=== PATIENT | female | born 1990 | race American Indian/Alaskan Native ===

== ENCOUNTER 2020-12-27 13:26 | Emergency (ER) | payer OTHER ==
[2020-12-27 13:36] VITALS: BP 128/85
--- NOTE | 2020-12-27 13:43 | Emergency Department Report ---
ED General Adult HPI - General Chief complaint: Fever Stated complaint: HIGH FEVER/PAIN PUI?: No Source: patient Mode of arrival: Ambulatory Limitations: No Limitations - History of Present Illness Initial comments: This is a 30-year-old female with no prior medical history presents ED complaining of intermittent fever for the past 3 days. Patient states that fever began 3 days ago which reduces with Tylenol but has not gone away. Patient also admits nausea and vomiting intermittently. Patient states that she has not been in contact with any sick persons. Patient does complain of flank pain and dysuria. Patient also notes that she is irregular menstrual cycles in the past few months. She does deny abdominal pain chest pain, vaginal dischar ge, abnormal bleeding - Related Data Previous Rx's Medication Instructions Recorded Last Taken Type Prednisone [Prednisone 10 mg 10 mg PO .TAPER #1 tab.ds.pk 02/06/14 Unknown Rx (6-Day Pack, 21 Tabs)] Ondansetron [Zofran ODT TAB] 8 mg PO Q12HR #10 tab.rapdis 12/27/20 Unknown Rx Phenazopyridine [Pyridium] 200 mg PO BID #8 tab 12/27/20 Unknown Rx Sulfamethoxazole/Trimethoprim 1 each PO BID #14 tablet 12/27/20 Unknown Rx [Bactrim DS TAB] Allergies Allergy/AdvReac Type Severity Reaction Status Date / Time No Known Allergies Allergy Verified 12/12/13 15:43 ED Review of Systems ROS: Stated complaint: HIGH FEVER/PAIN Other details as noted in HPI Comment: All other systems reviewed and negative ED Past Medical Hx - Past Medical History Previous Medical History?: No - Surgical History Past Surgical History?: No - Social History Smoking Status: Current Some Day Smoker - Medications Home Medications: Home Medications Medication Instructions Recorded Confirmed Last Taken Type Prednisone [Prednisone 10 mg 10 mg PO .TAPER #1 tab.ds.pk 02/06/14 Unknown Rx (6-Day Pack, 21 Tabs)] Ondansetron [Zofran ODT TAB] 8 mg PO Q12HR #10 tab.rapdis 12/27/20 Unknown Rx Phenazopyridine [Pyridium] 200 mg PO BID #8 tab 12/27/20 Unknown Rx Sulfamethoxazole/Trimethoprim 1 each PO BID #14 tablet 12/27/20 Unknown Rx [Bactrim DS TAB] ED Physical Exam - General Limitations: No Limitations General appearance: alert, in no apparent distress - Head Head exam: Present: atraumatic, normocephalic - Eye Eye exam: Present: normal appearance - ENT ENT exam: Present: mucous membranes moist - Neck Neck exam: Present: normal inspection - Respiratory Respiratory exam: Present: normal lung sounds bilaterally. Absent: respiratory distress - Cardiovascular Cardiovascular Exam: Present: regular rate, normal rhythm. Absent: systolic murmur, diastolic murmur, rubs, gallop - GI/Abdominal GI/Abdominal exam: Present: soft, normal bowel sounds. Absent: distended, tende rness - Extremities Exam Extremities exam: Present: normal inspection, full ROM. Absent: tenderness, normal capillary refill - Back Exam Back exam: Present: normal inspection, full ROM, CVA tenderness (R). Absent: tenderness, CVA tenderness (L) - Neurological Exam Neurological exam: Present: alert, oriented X3, CN II-XII intact, normal gait - Psychiatric Psychiatric exam: Present: normal affect, normal mood - Skin Skin exam: Present: warm, dry, intact, normal color. Absent: rash ED Course Vital Signs 12/27/20 12/27/20 12/27/20 13:30 15:58 17:40 Temperature 101.3 F H 99.7 F H Pulse Rate 110 H 94 H Respiratory 18 18 Rate Blood Pressure 128/85 O2 Sat by Pulse 98 Oximetry ED Medical Decision Making - Lab Data Result diagrams: 12/27/20 14:27 12/27/20 14:27 Laboratory Last Values WBC 8.0 K/mm3 (4.5-11.0) 12/27/20 14:27 RBC 4.16 M/mm3 (3.65-5.03) 12/27/20 14:27 Hgb 11.9 gm/dl (10.1-14.3) 12/27/20 14:27 Hct 35.9 % (30.3-42.9) 12/27/20 14:27 MCV 86 fl (79-97) 12/27/20 14:27 MCH 29 pg (28-32) 12/27/20 14:27 MCHC 33 % (30-34) 12/27/20 14:27 RDW 14.7 % (13.2-15.2) 12/27/20 14:27 Plt Count 158 K/mm3 (140-440) 12/27/20 14:27 Lymph % (Auto) 10.2 % (13.4-35.0) L 12/27/20 14:27 [place] % (Auto) 9.3 % (0.0-7.3) H 12/27/20 14:27 Eos % (Auto) 0.0 % (0.0-4.3) 12/27/20 14:27 Baso % (Auto) 0.2 % (0.0-1.8) 12/27/20 14:27 Lymph # (Auto) 0.8 K/mm3 (1.2-5.4) L 12/27/20 14:27 [place] # (Auto) 0.7 K/mm3 (0.0-0.8) 12/27/20 14:27 Eos # (Auto) 0.0 K/mm3 (0.0-0.4) 12/27/20 14:27 Baso # (Auto) 0.0 K/mm3 (0.0-0.1) 12/27/20 14:27 Seg Neutrophils % 80.3 % (40.0-70.0) H 12/27/20 14:27 Seg Neutrophils # 6.4 K/mm3 (1.8-7.7) 12/27/20 14:27 Sodium 132 mmol/L (137-145) L 12/27/20 14:27 Potassium 4.2 mmol/L (3.6-5.0) 12/27/20 14:27 Chloride 97.3 mmol/L (98-107) L 12/27/20 14:27 Carbon Dioxide 23 mmol/L (22-30) 12/27/20 14:27 Anion Gap 16 mmol/L 12/27/20 14:27 BUN 8 mg/dL (7-17) 12/27/20 14:27 Creatinine 0.7 mg/dL (0.6-1.2) 12/27/20 14:27 Estimated GFR > 60 ml/min 12/27/20 14:27 BUN/Creatinine Ratio 11 % 12/27/20 14:27 Glucose 97 mg/dL (65-100) 12/27/20 14:27 Calcium 9.3 mg/dL (8.4-10.2) 12/27/20 14:27 Lipase 19 units/L (13-60) 12/27/20 14:27 Urine Color Yellow (Yellow) 12/27/20 16:11 Urine Turbidity Cloudy (Clear) 12/27/20 16:11 Urine pH 6.0 (5.0-7.0) 12/27/20 16:11 Ur Specific [place] 1.014 (1.003-1.030) 12/27/20 16:11 Urine Protein 100 mg/dl mg/dL (Negative) 12/27/20 16:11 Urine Glucose (UA) Neg mg/dL (Negative) 12/27/20 16:11 Urine Ketones Neg mg/dL (Negative) 12/27/20 16:11 Urine Blood Mod (Negative) 12/27/20 16:11 Urine Nitrite Neg (Negative) 12/27/20 16:11 Ur Reducing Substances Not Reportable 12/27/20 16:11 Urine Bilirubin Neg (Negative) 12/27/20 16:11 Urine Ictotest Not Reportable 12/27/20 16:11 Urine Urobilinogen < 2.0 mg/dL (<2.0) 12/27/20 16:11 Ur Leukocyte Esterase Lg (Negative) 12/27/20 16:11 Urine WBC (Auto) > 182.0 /HPF (0.0-6.0) H 12/27/20 16:11 Urine RBC (Auto) 75.0 /HPF (0.0-6.0) 12/27/20 16:11 U Epithel Cells (Auto) 5.0 /HPF (0-13.0) 12/27/20 16:11 Urine Bacteria (Auto) 3+ /HPF (Negative) 12/27/20 16:11 Urine Mucus Few /HPF 12/27/20 16:11 Urine HCG, Qual Negative (Negative) 12/27/20 16:11 - Medical Decision Making 30-year-old female presents with a bacterial urinary tract infection ED course: Patient received Tylenol during ED stay Urinalysis is positive for bacteria and all other labs within normal limits. I discussed this findings with the patient. I discussed the patient to make sure he completes all of the antibiotic dose even until symptoms resolve. I discussed with the patient on Pyridium will turn her urine orangeish color but will stop once he stops taking pyridium Patient is in no acute distress, patient also has on instructions were given to her. Critical care attestation.: If time is entered above; I have spent that time in minutes in the direct care of this critically ill patient, excluding procedure time. ED Disposition Clinical Impression: UTI (urinary tract infection), Cystitis, Dysuria Disposition: TO HOME OR SELFCARE Is pt being admited?: No Does the pt Need Aspirin: No Condition: Stable Instructions: Urinary Tract Infection, Adult, Sphk-[id number]-Atds, Dysuria Additional Instructions: Make sure to follow up with the primary care physician as discussed. Take all your medications as you've been prescribed. If you have any worsening symptoms or develop new symptoms please return to ED immediately. Prescriptions: Sulfamethoxazole/Trimethoprim [Bactrim DS TAB] 1 each PO BID #14 tablet Phenazopyridine [Pyridium] 200 mg PO BID #8 tab Ondansetron [Zofran ODT TAB] 8 mg PO Q12HR #10 tab.rapdis Referrals: PRIMARY CARE, [Primary Care Provider] - 3-5 Days [facility] [Outside] - 3-5 Days [facility] [Outside] - 3-5 Days Forms: Accompanied Note, Work/School Release Form(ED) Time of Disposition: 16:54
[2020-12-27 14:54] LABS: Basophils % (Auto) 0.2 % (0.0-1.8); Hematocrit 35.9 % (30.3-42.9); Hemoglobin 11.9 gm/dl (10.1-14.3); Lymphocytes # (Auto) 0.8 K/mm3 (1.2-5.4); Lymphocytes % (Auto) 10.2 % (13.4-35.0); Mean Corpuscular HGB Conc 33 % (30-34); Mean Corpuscular Volume 86 fl (79-97); Monocytes # (Auto) 0.7 K/mm3 (0.0-0.8); Monocytes % (Auto) 9.3 % (0.0-7.3); Platelet Count 158 K/mm3 (140-440); Red Blood Count 4.16 M/mm3 (3.65-5.03); Red Cell Distribution Width 14.7 % (13.2-15.2)
[2020-12-27 15:08] LABS: Blood Urea Nitrogen 8 mg/dL (7-17); Calcium 9.3 mg/dL (8.4-10.2); Hemolysis Index 5
[2020-12-27 15:19] LABS: BUN/Creatinine Ratio 11
[2020-12-27] MEDS ORDERED: ACETAMINOPHEN 325 MG TAB PO ONE (15:27)
[2020-12-27] MEDS ORDERED: ONDANSETRON 4 MG ODT TAB ONE ×2 (15:51→15:52)
[2020-12-27] MEDS ORDERED: ONDANSETRON 4 MG ODT TAB PO ONE (15:53)
[2020-12-27 16:32] LABS: HCG Qualitative,Urine Negative (Negative)
[2020-12-27 16:49] LABS: Bacteria,Urine 3+ /HPF (Negative); Bilirubin,Urine NEG (Negative); Blood,Urine MOD (Negative); Color,Urine Yellow (Yellow); Mucus,Urine FEW /HPF; Urobilinogen,Urine < 2.0 mg/dL (<2.0)
[2020-12-27 16:51] LABS: WBC,Urine > 182.0 /HPF (0.0-6.0)
== END 2020-12-27 17:40 | disposition home or self-care (01) ==
LOC: ED 13:26
DX: N39.0 Urinary tract infection, site not specified (principal); R30.0 Dysuria; F17.200 Nicotine dependence, unspecified, uncomplicated; Z79.899 Other long term (current) drug therapy
CPT/HCPCS: 36415; 80048; 81001; 81025; 83690; 85025; Q0162

== ENCOUNTER 2021-08-02 18:11 | Emergency (ER) | payer OTHER ==
[2021-08-02 18:18] VITALS: BP 122/89
[2021-08-02] MEDS ORDERED: ACETAMINOPHEN 325 MG TAB PO ONE (18:36)
[2021-08-02] MEDS ORDERED: METOCLOPRAMIDE 10 MG TAB PO ONE (18:36)
[2021-08-02 18:40] LABS: Basophils % (Auto) 0.6 % (0.0-1.8); Eosinophils # (Auto) 0.1 K/mm3 (0.0-0.4); Eosinophils % (Auto) 1.4 % (0.0-4.3); Hematocrit 34.8 % (30.3-42.9); Hemoglobin 11.5 gm/dl (10.1-14.3); Lymphocytes # (Auto) 1.9 K/mm3 (1.2-5.4); Mean Corpuscular HGB Conc 33 % (30-34); Mean Corpuscular Volume 85 fl (79-97); Monocytes # (Auto) 0.4 K/mm3 (0.0-0.8); Monocytes % (Auto) 8.6 % (0.0-7.3); Platelet Count 202 K/mm3 (140-440); Red Cell Distribution Width 18.9 % (13.2-15.2)
[2021-08-02 19:12] LABS: Alanine Aminotransferase 9 units/L (7-56); Albumin 4.6 g/dL (3.9-5); Blood Urea Nitrogen 7 mg/dL (7-17); Calcium 9.6 mg/dL (8.4-10.2); Hemolysis Index 16
[2021-08-02 19:15] LABS: Bilirubin,Urine NEG (Negative); Blood,Urine NEG (Negative); Color,Urine Yellow (Yellow); Mucus,Urine FEW /HPF; Protein,Urine <15 mg/dL mg/dL (Negative); Urobilinogen,Urine < 2.0 mg/dL (<2.0)
[2021-08-02 19:17] LABS: BUN/Creatinine Ratio 14
--- NOTE | 2021-08-02 20:03 | Emergency Department Report ---
ED Abdominal Pain HPI - General Chief Complaint: Abdominal Pain Stated Complaint: LOWER STOMACH PAINS,NAUSEA Time Seen by Provider: 08/02/21 18:24 Source: patient Mode of arrival: Ambulatory Limitations: No Limitations - History of Present Illness Initial Comments: Patient is a 31-year-old female presents emergency room lower abdominal discomfort that began early this morning. She has associated nausea. She denies any vomiting, diarrhea, urinary symptoms, abnormal vaginal discharge, back pain, vaginal bleeding. Patient states that her last menstrual cycle was June 14. She states that she took multiple positive test. She has not seen anyone for this or had ultrasound. No past medical history. No allergies to medications. /P: 1/A: 3. Severity scale (0 -10): 4 - Related Data Previous Rx's Medication Instructions Recorded Last Taken Type Prednisone [Prednisone 10 mg 10 mg PO .TAPER #1 tab.ds.pk 02/06/14 Unknown Rx (6-Day Pack, 21 Tabs)] Ondansetron [Zofran ODT TAB] 8 mg PO Q12HR #10 tab.rapdis 12/27/20 Unknown Rx Phenazopyridine [Pyridium] 200 mg PO BID #8 tab 12/27/20 Unknown Rx Sulfamethoxazole/Trimethoprim 1 each PO BID #14 tablet 12/27/20 Unknown Rx [Bactrim DS TAB] Acetaminophen [Tylenol] 650 mg PO Q8HR PRN #20 capsule 08/02/21 Unknown Rx Metoclopramide [Reglan] 10 mg PO TID PRN #12 tab 08/02/21 Unknown Rx Allergies Allergy/AdvReac Type Severity Reaction Status Date / Time No Known Allergies Allergy Verified 12/12/13 15:43 ED Review of Systems ROS: Stated complaint: LOWER STOMACH PAINS,NAUSEA Other details as noted in HPI Comment: All other systems reviewed and negative ED Past Medical Hx - Social History Smoking Status: Current Some Day Smoker - Medications Home Medications: Home Medications Medication Instructions Recorded Confirmed Last Taken Type Prednisone [Prednisone 10 mg 10 mg PO .TAPER #1 tab.ds.pk 02/06/14 Unknown Rx (6-Day Pack, 21 Tabs)] Ondansetron [Zofran ODT TAB] 8 mg PO Q12HR #10 tab.rapdis 12/27/20 Unknown Rx Phenazopyridine [Pyridium] 200 mg PO BID #8 tab 12/27/20 Unknown Rx Sulfamethoxazole/Trimethoprim 1 each PO BID #14 tablet 12/27/20 Unknown Rx [Bactrim DS TAB] Acetaminophen [Tylenol] 650 mg PO Q8HR PRN #20 capsule 08/02/21 Unknown Rx Metoclopramide [Reglan] 10 mg PO TID PRN #12 tab 08/02/21 Unknown Rx ED Physical Exam - General Limitations: No Limitations General appearance: alert, in no apparent distress - Head Head exam: Present: atraumatic, normocephalic - Eye Eye exam: Present: normal appearance - ENT ENT exam: Present: mucous membranes moist - Respiratory Respiratory exam: Present: normal lung sounds bilaterally. Absent: respiratory distress, wheezes, rales, rhonchi, stridor, chest wall tenderness, accessory muscle use, decreased breath sounds, prolonged expiratory - Cardiovascular Cardiovascular Exam: Present: regular rate, normal rhythm, normal heart sounds. Absent: systolic murmur, diastolic murmur, rubs, gallop - GI/Abdominal GI/Abdominal exam: Present: soft, normal bowel sounds. Absent: distended, tenderness, guarding, rebound, rigid - Neurological Exam Neurological exam: Present: alert, oriented X3 - Psychiatric Psychiatric exam: Present: normal affect, normal mood - Skin Skin exam: Present: warm, dry, intact ED Course Vital Signs 08/02/21 08/02/21 18:17 18:18 Temperature 98 F Pulse Rate 90 Respiratory 18 Rate Blood Pressure 122/89 O2 Sat by Pulse 100 Oximetry ED Medical Decision Making - Lab Data Result diagrams: 08/02/21 21:54 08/02/21 21:54 Lab Results 08/02/21 08/02/21 08/02/21 Range/Units 18:22 18:22 18:25 WBC 4.8 (4.5-11.0) K/mm3 RBC 4.10 (3.65-5.03) M/mm3 Hgb 11.5 (10.1-14.3) gm/dl Hct 34.8 (30.3-42.9) % MCV 85 (79-97) fl MCH 28 (28-32) pg MCHC 33 (30-34) % RDW 18.9 H (13.2-15.2) % Plt Count 202 (140-440) K/mm3 Lymph % (Auto) 39.0 H (13.4-35.0) % [place] % (Auto) 8.6 H (0.0-7.3) % Eos % (Auto) 1.4 (0.0-4.3) % Baso % (Auto) 0.6 (0.0-1.8) % Lymph # (Auto) 1.9 (1.2-5.4) K/mm3 [place] # (Auto) 0.4 (0.0-0.8) K/mm3 Eos # (Auto) 0.1 (0.0-0.4) K/mm3 Baso # (Auto) 0.0 (0.0-0.1) K/mm3 Seg Neutrophils % 50.4 (40.0-70.0) % Seg Neutrophils # 2.4 (1.8-7.7) K/mm3 Sodium 131 L (137-145) mmol/L Potassium 3.8 (3.6-5.0) mmol/L Chloride 97.9 L (98-107) mmol/L Carbon Dioxide 23 (22-30) mmol/L Anion Gap 14 mmol/L BUN 7 (7-17) mg/dL Creatinine 0.5 L (0.6-1.2) mg/dL Estimated GFR > 60 ml/min BUN/Creatinine Ratio 14 % Glucose 110 H (65-100) mg/dL Calcium 9.6 (8.4-10.2) mg/dL Total Bilirubin 0.70 (0.1-1.2) mg/dL AST 15 (5-40) units/L ALT 9 (7-56) units/L Alkaline Phosphatase 64 (35-129) units/L Total Protein 8.0 (6.3-8.2) g/dL Albumin 4.6 (3.9-5) g/dL Albumin/Globulin Ratio 1.4 % HCG, Quant 1.74 (0-4) mIU/mL Urine Color (Yellow) Urine Turbidity (Clear) Urine pH (5.0-7.0) Ur Specific [place] (1.003-1.030) Urine Protein (Negative) mg/dL Urine Glucose (UA) (Negative) mg/dL Urine Ketones (Negative) mg/dL Urine Blood (Negative) Urine Nitrite (Negative) Urine Bilirubin (Negative) Urine Urobilinogen (<2.0) mg/dL Ur Leukocyte Esterase (Negative) Urine WBC (Auto) (0.0-6.0) /HPF Urine RBC (Auto) (0.0-6.0) /HPF U Epithel Cells (Auto) (0-13.0) /HPF Urine Mucus /HPF 08/02/21 08/02/21 08/02/21 Range/Units 18:41 21:54 21:54 WBC 5.1 (4.5-11.0) K/mm3 RBC 4.19 (3.65-5.03) M/mm3 Hgb 11.8 (10.1-14.3) gm/dl Hct 35.8 (30.3-42.9) % MCV 85 (79-97) fl MCH 28 (28-32) pg MCHC 33 (30-34) % RDW 18.7 H (13.2-15.2) % Plt Count 188 (140-440) K/mm3 Lymph % (Auto) 38.7 H (13.4-35.0) % [place] % (Auto) 10.4 H (0.0-7.3) % Eos % (Auto) 1.3 (0.0-4.3) % Baso % (Auto) 0.6 (0.0-1.8) % Lymph # (Auto) 2.0 (1.2-5.4) K/mm3 [place] # (Auto) 0.5 (0.0-0.8) K/mm3 Eos # (Auto) 0.1 (0.0-0.4) K/mm3 Baso # (Auto) 0.0 (0.0-0.1) K/mm3 Seg Neutrophils % 49.0 (40.0-70.0) % Seg Neutrophils # 2.5 (1.8-7.7) K/mm3 Sodium 130 L (137-145) mmol/L Potassium 3.8 (3.6-5.0) mmol/L Chloride 97.4 L (98-107) mmol/L Carbon Dioxide 21 L (22-30) mmol/L Anion Gap 15 mmol/L BUN 8 (7-17) mg/dL Creatinine 0.5 L (0.6-1.2) mg/dL Estimated GFR > 60 ml/min BUN/Creatinine Ratio 16 % Glucose 87 (65-100) mg/dL Calcium 9.5 (8.4-10.2) mg/dL Total Bilirubin 0.70 (0.1-1.2) mg/dL AST 15 (5-40) units/L ALT 9 (7-56) units/L Alkaline Phosphatase 65 (35-129) units/L Total Protein 7.8 (6.3-8.2) g/dL Albumin 4.6 (3.9-5) g/dL Albumin/Globulin Ratio 1.4 % HCG, Quant (0-4) mIU/mL Urine Color Yellow (Yellow) Urine Turbidity Clear (Clear) Urine pH 7.0 (5.0-7.0) Ur Specific [place] 1.009 (1.003-1.030) Urine Protein <15 mg/dl (Negative) mg/dL Urine Glucose (UA) Neg (Negative) mg/dL Urine Ketones 20 (Negative) mg/dL Urine Blood Neg (Negative) Urine Nitrite Neg (Negative) Urine Bilirubin Neg (Negative) Urine Urobilinogen < 2.0 (<2.0) mg/dL Ur Leukocyte Esterase Neg (Negative) Urine WBC (Auto) 1.0 (0.0-6.0) /HPF Urine RBC (Auto) 2.0 (0.0-6.0) /HPF U Epithel Cells (Auto) 6.0 (0-13.0) /HPF Urine Mucus Few /HPF 08/02/21 Range/Units 21:54 WBC (4.5-11.0) K/mm3 RBC (3.65-5.03) M/mm3 Hgb (10.1-14.3) gm/dl Hct (30.3-42.9) % MCV (79-97) fl MCH (28-32) pg MCHC (30-34) % RDW (13.2-15.2) % Plt Count (140-440) K/mm3 Lymph % (Auto) (13.4-35.0) % [place] % (Auto) (0.0-7.3) % Eos % (Auto) (0.0-4.3) % Baso % (Auto) (0.0-1.8) % Lymph # (Auto) (1.2-5.4) K/mm3 [place] # (Auto) (0.0-0.8) K/mm3 Eos # (Auto) (0.0-0.4) K/mm3 Baso # (Auto) (0.0-0.1) K/mm3 Seg Neutrophils % (40.0-70.0) % Seg Neutrophils # (1.8-7.7) K/mm3 Sodium (137-145) mmol/L Potassium (3.6-5.0) mmol/L Chloride (98-107) mmol/L Carbon Dioxide (22-30) mmol/L Anion Gap mmol/L BUN (7-17) mg/dL Creatinine (0.6-1.2) mg/dL Estimated GFR ml/min BUN/Creatinine Ratio % Glucose (65-100) mg/dL Calcium (8.4-10.2) mg/dL Total Bilirubin (0.1-1.2) mg/dL AST (5-40) units/L ALT (7-56) units/L Alkaline Phosphatase (35-129) units/L Total Protein (6.3-8.2) g/dL Albumin (3.9-5) g/dL Albumin/Globulin Ratio % HCG, Quant 58004 H (0-4) mIU/mL Urine Color (Yellow) Urine Turbidity (Clear) Urine pH (5.0-7.0) Ur Specific [place] (1.003-1.030) Urine Protein (Negative) mg/dL Urine Glucose (UA) (Negative) mg/dL Urine Ketones (Negative) mg/dL Urine Blood (Negative) Urine Nitrite (Negative) Urine Bilirubin (Negative) Urine Urobilinogen (<2.0) mg/dL Ur Leukocyte Esterase (Negative) Urine WBC (Auto) (0.0-6.0) /HPF Urine RBC (Auto) (0.0-6.0) /HPF U Epithel Cells (Auto) (0-13.0) /HPF Urine Mucus /HPF - Radiology Data Radiology results: report reviewed Ordering Physician: NOÉ VANG Date of Service: 08/02/21 Procedure(s): US OB >= 14 weeks Fetus Accession Number(s): [id number] cc: NOÉ VANG ULTRASOUND OBSTETRIC INDICATION / CLINICAL INFORMATION: pelvic pain. Clinical Gestational Age (GA) in weeks, days: 7 weeks 0 days TECHNIQUE: Transabdominal and Transvaginal. COMPARISON: None available. FINDINGS: GESTATIONAL SAC: Well-defined oval shape and intrauterine in location. YOLK SAC: No significant abnormality. EMBRYO/FETUS: No significant abnormality. - [place]-Rump Length = 0.74 cm = 6, 4 weeks, days - Heart Rate, beats per minute (if present) = 126 ADNEXA: No significant abnormality. FREE FLUID: None. ADDITIONAL FINDINGS: None. IMPRESSION: 1. Single, living intrauterine with estimated sonographic age of 6, 4 weeks, days. Signer Name: Duane Hanson MD Signed: 08/02/2021 9:18 PM Workstation Name: [id number] Transcribed By: PALMA Dictated By: DUANE HANSON MD Electronically Authenticated By: DUANE HANSON MD Signed Date/Time: 08/02/212117 DD/ 13 TD/TT: - Medical Decision Making Patient is a 31-year-old female presents emergency room lower abdominal discomfort that began early this morning. She has associated nausea. She denies any vomiting, diarrhea, urinary symptoms, abnormal vaginal discharge, back pain, vaginal bleeding. Patient states that her last menstrual cycle was June 14. She states that she took multiple positive test. She has not seen anyone for this or had ultrasound. No past medical history. No allergies to medications. /P: 1/A: 3. Vitals are normal. No abdominal tenderness on exam, no guarding, no rebound, no rigidity, no masses, no peritoneal signs. Initial labs are stable, hCG quant is less than 2, UA is within normal limits. Pelvic ultrasound ordered: 1. Single, living intrauterine with estimated sonographic age of 6, 4 weeks, days. Given that patient has 6-week gestation with heart tones, patient's hCG quant has to be a laboratory error. Had the lab redraw patient's labs[place] [id number]. She has mild dehydration, encouraged oral rehydration given that she is not having vomiting is able to tolerate p.o. intake. Discussed all results with patient answer questions. Discussed the importance of close [employer] follow-up. Advised patient Please take medication as prescribed as needed. Please take a vitamin [id number]. Increase your fluid intake. Practice pelvic rest. Follow-up with [employer]. Follow-up with primary care doctor. Return to emergency room for any new or worsening symptoms. Critical care attestation.: If time is entered above; I have spent that time in minutes in the direct care of this critically ill patient, excluding procedure time. ED Disposition Clinical Impression: Nausea Qualifiers: Weeks of gestation: less than 8 weeks Qualified Code(s): Z3A.01 - Less than 8 weeks gestation of Abdominal pain Qualifiers: Abdominal location: lower abdomen, unspecified Qualified Code(s): R10.30 - Lower abdominal pain, unspecified Disposition: HOME / SELF CARE / HOMELESS Is pt being admited?: No Does the pt Need Aspirin: No Condition: Stable Instructions: Abdominal Pain During , [id number], Abdominal Pain (ED) Additional Instructions: Please take medication as prescribed as needed. Please take a vitamin [id number]. Increase your fluid intake. Practice pelvic rest. Follow-up with [employer]. Follow-up with primary care doctor. Return to emergency room for any new or worsening symptoms. Prescriptions: Metoclopramide [Reglan] 10 mg PO TID PRN #12 tab PRN Reason: nausea Acetaminophen [Tylenol] 650 mg PO Q8HR PRN #20 capsule PRN Reason: pain Referrals: PRIMARY CARE, [Primary Care Provider] - 2-3 Days LIN GOTTLIEB MD [Staff Physician] - 2-3 Days Time of Disposition: 22:50 Print Language: BULGARIAN
--- NOTE | 2021-08-02 21:23 | Ultrasound Report ---
ULTRASOUND OBSTETRIC INDICATION / CLINICAL INFORMATION: pelvic pain. Clinical Gestational Age (GA) in weeks, days: 7 weeks 0 days TECHNIQUE: Transabdominal and Transvaginal. COMPARISON: None available. FINDINGS: GESTATIONAL SAC: Well-defined oval shape and intrauterine in location. YOLK SAC: No significant abnormality. EMBRYO/FETUS: No significant abnormality. - [place]-Rump Length = 0.74 cm = 6, 4 weeks, days - Heart Rate, beats per minute (if present) = 126 ADNEXA: No significant abnormality. FREE FLUID: None. ADDITIONAL FINDINGS: None. IMPRESSION: 1. Single, living intrauterine with estimated sonographic age of 6, 4 weeks, days. Signer Name: Duane Field MD Signed: 08/02/2021 9:18 PM Workstation Name: [id number]
--- NOTE | 2021-08-02 21:23 | Ultrasound Report ---
ULTRASOUND OBSTETRIC INDICATION / CLINICAL INFORMATION: pelvic pain. Clinical Gestational Age (GA) in weeks, days: 7 weeks 0 days TECHNIQUE: Transabdominal and Transvaginal. COMPARISON: None available. FINDINGS: GESTATIONAL SAC: Well-defined oval shape and intrauterine in location. YOLK SAC: No significant abnormality. EMBRYO/FETUS: No significant abnormality. - [place]-Rump Length = 0.74 cm = 6, 4 weeks, days - Heart Rate, beats per minute (if present) = 126 ADNEXA: No significant abnormality. FREE FLUID: None. ADDITIONAL FINDINGS: None. IMPRESSION: 1. Single, living intrauterine with estimated sonographic age of 6, 4 weeks, days. Signer Name: Duane Field MD Signed: 08/02/2021 9:18 PM Workstation Name: [id number]
[2021-08-02 22:15] LABS: Basophils % (Auto) 0.6 % (0.0-1.8); Eosinophils # (Auto) 0.1 K/mm3 (0.0-0.4); Eosinophils % (Auto) 1.3 % (0.0-4.3); Hematocrit 35.8 % (30.3-42.9); Hemoglobin 11.8 gm/dl (10.1-14.3); Lymphocytes % (Auto) 38.7 % (13.4-35.0); Mean Corpuscular HGB Conc 33 % (30-34); Mean Corpuscular Volume 85 fl (79-97); Monocytes # (Auto) 0.5 K/mm3 (0.0-0.8); Monocytes % (Auto) 10.4 % (0.0-7.3); Platelet Count 188 K/mm3 (140-440); Red Blood Count 4.19 M/mm3 (3.65-5.03); Red Cell Distribution Width 18.7 % (13.2-15.2)
[2021-08-02 22:33] LABS: Alanine Aminotransferase 9 units/L (7-56); Albumin 4.6 g/dL (3.9-5); Blood Urea Nitrogen 8 mg/dL (7-17); Calcium 9.5 mg/dL (8.4-10.2); Hemolysis Index 9
[2021-08-02 22:40] LABS: BUN/Creatinine Ratio 16
== END 2021-08-02 23:36 | disposition home or self-care (01) ==
LOC: ED 18:11
DX: O26.891 Other specified pregnancy related conditions, first trimester (principal); R10.30 Lower abdominal pain, unspecified; R11.0 Nausea; Z3A.01 Less than 8 weeks gestation of pregnancy; F17.200 Nicotine dependence, unspecified, uncomplicated
CPT/HCPCS: 36415; 76805; 76817; 80053; 81001; 84702; 85025; 99284